=== PATIENT | female | born 1965 | race Caucasian/White ===

== ENCOUNTER 2021-03-29 09:52 | Emergency (ER) | payer OTHER, SELFPAY ==
--- NOTE | ~2021-03-29 | XR_ITS ---
EXAMINATION: XR HUMERUS, LEFT CLINICAL INFORMATION: Trauma, large hematoma. COMPARISON: None TECHNIQUE: 2 views of the left humerus. FINDINGS: There is no visible acute fracture or dislocation. The humeral head and neck and shaft appear intact. There is no destructive process. Bony mineralization is normal. No gas tracking in the soft tissues. There is a 0.7 x 0.5 ossification adjacent to the lateral epicondyle, likely corticated. This may be an old detached spur and with be best correlated with formal radiographs of the elbow. XR/XR humerus LT IMPRESSION: 1. No visible acute fracture or dislocation. No gas tracking in soft tissues. 2. Probable detached corticated spur near lateral epicondyle 0.7 x 0.5 cm. This may be further assessed with formal elbow radiographs.
--- NOTE | ~2021-03-29 | CT_ITS ---
EXAMINATION: CT LEFT HUMERUS WITHOUT CONTRAST CLINICAL INFORMATION: Hematoma. History of trauma. COMPARISON: Previous x-ray of the left humerus from earlier the same day TECHNIQUE: Axial images through the left humerus without contrast. Sagittal and coronal reconstructions on the technologist workstation were performed. FINDINGS: Bone alignment is normal. No fracture or dislocation is seen. The the shoulder and elbow joint spaces are normal. There is a small well-corticated soft tissue ossification adjacent to the lateral humeral epicondyle likely related to old epicondylitis. There is a high attenuation soft tissue mass seen in the subcutaneous fat of the inferior posterior medial upper arm. This measures 2.2 x 2.8 x 4 cm in dimension. There is stranding of the adjacent subcutaneous fat. This likely represents a hematoma. Soft tissues are otherwise unremarkable. No other soft tissue mass is seen. CT/CT humerus LT wo con IMPRESSION: No fracture or dislocation. 2.2 x 2.8 x 4 cm high attenuation subcutaneous soft tissue mass in the posterior medial inferior upper arm and stranding of the subcutaneous fat. This most likely represents a hematoma. 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
[2021-03-29 10:07] VITALS: BP 146/80; PULSE 74; RESP 16; TEMP 36.7; O2SAT 100; BMI 21.9
--- NOTE | 2021-03-29 10:36 | ED.EXTPRO ---
HPI - Extremity Problem General Chief complaint: Extremity Injury, Upper <GOPAL Kuo - Last Filed: 03/29/21 13:49> Stated complaint: Kicked by horse <GOPAL Kuo - Last Filed: 03/29/21 13:49> Time Seen by Provider: 03/29/21 10:25 <GOPAL Kuo - Last Filed: 03/29/21 13:49> Source: patient <GOPAL Kuo - Last Filed: 03/29/21 13:49> Mode of arrival: ambulatory <GOPAL Kuo - Last Filed: 03/29/21 13:49> Limitations: no limitations <GOPAL Kuo - Last Filed: 03/29/21 13:49> History of Present Illness HPI Narrative: 55 y/o female presenting with left upper arm pain, swelling and bruising after she was kicked in the arm by her friend's horse about 1.5 hours ago. She had immediate pain and bruising to the under portion of her upper arm. She has denies numbness or tingling. She has pain with elbow flexion but is able to freely move around her shoulder and arm. She is not on anticoagulation. <GOPAL Kuo - Last Filed: 03/29/21 13:49> MD Complaint: extremity pain and extremity swelling <GOPAL Kuo - Last Filed: 03/29/21 13:49> Onset (ago): hour(s) <GOPAL Kuo - Last Filed: 03/29/21 13:49> Pain Consistency: constant <GOPAL Kuo Last Filed: 03/29/21 13:49> Location: left and upper extremity <GOPAL Kuo Last Filed: 03/29/21 13:49> Severity scale (1-10): 8 <GOPAL Kuo - Last Filed: 03/29/21 13:49> Quality: aching and sharp <GOPAL Kuo - Last Filed: 03/29/21 13:49> Radiation: none <GOPAL Kuo - Last Filed: 03/29/21 13:49> Relieving factors: elevation <GOPAL Kuo Last Filed: 03/29/21 13:49> Exacerbating factors: palpation <GOPAL Kuo Last Filed: 03/29/21 13:49> Associated symptoms: myalgias <GOPAL Kuo Last Filed: 03/29/21 13:49> Related Data Allergies/Adverse reactions: Allergies Allergy/AdvReac Type Severity Reaction Status Date / Time pollen extracts Allergy Itchy Eyes Verified 03/29/21 10:06 <GOPAL Kuo Last Filed: 03/29/21 13:49> Review of Systems Review of Systems: Constitutional: No Fever, No Chills Cardiovascular: No Chest Pain, No SOB Respiratory: No Cough, No Sputum Gastrointestinal: No Nausea, No Vomiting, No Diarrhea, No abdominal Pain Musculoskeletal: No joint pain, + Myalgias Skin: No Skin Lesions, No rash Neuro: No Weakness, No Numbness, No Dizziness, No Headache Psych: No Anxiety/Panic, No Depression Heme/Lymph: + Bruising, No Lymphadenopathy <GOPAL Kuo Last Filed: 03/29/21 13:49> [facility] Past Medical History Attestation statement: The following information was validated with the patient. <GOPAL Kuo Last Filed: 03/29/21 13:49> Surgical History: Surgical History H/O: hysterectomy [place] teeth extracted <GOPAL Kuo Last Filed: 03/29/21 13:49> Physical Exam Vital Signs: Vital Signs: Last Vital Signs Temp 98.0 F 03/29/21 10:07 Pulse 77 03/29/21 13:14 Resp 16 03/29/21 13:14 BP 142/107 H 03/29/21 13:14 Pulse Ox 99 03/29/21 13:14 Body Mass Index 21.9 Appearance: Alert. Oriented X3. No acute distress. HEENT: normal inspection CVS: Normal heart rate and rhythm. Pulses normal. Respiratory: No respiratory distress. Skin: Skin warm and dry. Normal skin color. Normal skin turgor. No rashes. Extremities: left upper arm with large ecchymotic area, tense and taught over tricep area, NV intact distally. lower arm with soft compressible compartments, normal shoulder inspection and ROM. normal elbow inspection, pain with elbow flexion beyond 90 degrees, Neuro: Oriented X 3. No motor deficit. No sensory deficit. <GOPAL Kuo - Last Filed: 03/29/21 13:49> Vital Signs: Last Vital Signs Temp 98.0 F 03/29/21 10:07 Pulse 77 03/29/21 13:14 Resp 16 03/29/21 13:14 BP 142/107 H 03/29/21 13:14 Pulse Ox 99 03/29/21 13:14 Body Mass Index 21.9 <Cody Meeks MD - Last Filed: 04/30/21 16:15> Course Course Course Narrative: 55 y/o female presenting with significant left arm hematoma after she was kicked by a horse. Clinically not consistent with compartment syndrome given it is not circumfrential. Lower arm is benign. Will get XR humerus to assess for fracture as well as blood workup, CPK. <GOPAL Kuo - Last Filed: 03/29/21 13:49> I did assess this patient with large arm, tense hematoma. CT showed the extent of hematoma, Dr. Bhandari consulted. Told the patient that this was likely to cause the skin to become necrotic <Cody Meeks MD - Last Filed: 04/30/21 16:15> Reevaluation(s) Reevaluation #1: Dr. Meeks evaluated the patient and recommending CT arm to assess hematoma extent. <GOPAL Kuo - Last Filed: 03/29/21 13:49> Reevaluation #2: CT scan showing No fracture or dislocation. 2.2 x 2.8 x 4 cm high attenuation subcutaneous soft tissue mass in the posterior medial inferior upper arm and stranding of the subcutaneous fat. This most likely represents a hematoma. 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 Called Dr. Bhandari to evaluate the patient. Concern for evolving necrosis as hematoma organizes in the upcoming days. <GOPAL Kuo - Last Filed: 03/29/21 13:49> Reevaluation #3: Dr. Bhandari evaluated the patient - no surgical intervention required at this time. LAURE wrap applied for compression. She will likely need evacuation of the hematoma if/when necrosis of the area forms. This was relayed to the patient as well as the importance of close follow up. She is going to follow up with her PCP in the [facility] where she lives. Stable for d/c home. <GOPAL Kuo - Last Filed: 03/29/21 13:49> Consultations Consultation #1: Dr. Bhandari. General Surgery - recommending outpatient follow up <GOPAL Kuo - Last Filed: 03/29/21 13:49> MDM - Extremity (Nontraumatic) Lab Data Result diagrams: : 03/29/21 11:01 03/29/21 11:01 <GOPAL Kuo - Last Filed: 03/29/21 13:49> Labs: Lab Results 03/29/21 03/29/21 Range/Units 11:01 11:01 WBC 7.2 (4.8-10.8) X10*3/uL RBC 3.78 L (4.20-5.50) X10*6/uL Hgb 12.2 (12.0-16.0) g/dl Hct 36.0 L (37-47) % MCV 95.2 (80-98) fL MCH 32.3 (27.0-33.0) pg MCHC 33.9 (31.0-35.0) g/dl RDW 12.5 (11.0-16.0) % Plt Count 240 (160-400) X10*3/uL MPV 9.8 (9.4-12.3) fL Immature Gran % (Auto) 0.3 (0.0-0.4) % Neut % (Auto) 75.1 H (45-73) % Lymph % (Auto) 16.4 L (20-40) % [place] % (Auto) 7.5 (2-11) % Eos % (Auto) 0.3 (0-4) % Baso % (Auto) 0.4 (0-2) % Lymph # (Auto) 1.2 (1.2-4.9) X10*3/uL [place] # (Auto) 0.5 (0.1-1.2) X10*3/uL Eos # (Auto) 0.0 (0.0-0.4) X10*3/uL Baso # (Auto) 0.0 (0.0-0.2) X10*3/uL Abs Immat Gran (auto) 0.02 (0.00-0.03) X10*3/uL Absolute Neuts (auto) 5.4 (2.0-8.3) X10*3/uL Absolute Nucleated RBC 0.000 (0.0-0.012) X10*3/uL Nucleated RBC % (auto) 0.0 (0.0-0.2) /100WBC Sodium 138 (135-145) mmol/L Potassium 4.5 (3.3-5.1) mmol/L Chloride 102 (96-108) mmol/L Carbon Dioxide 26 (22-29) mmol/L Anion Gap 15 (12-20) BUN 12 (9-16) mg/dL Creatinine 0.79 (0.5-1.4) mg/dL Estim Creat Clear Calc 59.9 Estimated GFR > 60 Random Glucose 110 (60-115) mg/dL Calcium 9.4 (8.4-10.2) mg/dL Total Creatine Kinase 316 H (26-140) U/L <GOPAL Kuo - Last Filed: 03/29/21 13:49> Lab Results 03/29/21 03/29/21 Range/Units 11:01 11:01 WBC 7.2 (4.8-10.8) X10*3/uL RBC 3.78 L (4.20-5.50) X10*6/uL Hgb 12.2 (12.0-16.0) g/dl Hct 36.0 L (37-47) % MCV 95.2 (80-98) fL MCH 32.3 (27.0-33.0) pg MCHC 33.9 (31.0-35.0) g/dl RDW 12.5 (11.0-16.0) % Plt Count 240 (160-400) X10*3/uL MPV 9.8 (9.4-12.3) fL Immature Gran % (Auto) 0.3 (0.0-0.4) % Neut % (Auto) 75.1 H (45-73) % Lymph % (Auto) 16.4 L (20-40) % [place] % (Auto) 7.5 (2-11) % Eos % (Auto) 0.3 (0-4) % Baso % (Auto) 0.4 (0-2) % Lymph # (Auto) 1.2 (1.2-4.9) X10*3/uL [place] # (Auto) 0.5 (0.1-1.2) X10*3/uL Eos # (Auto) 0.0 (0.0-0.4) X10*3/uL Baso # (Auto) 0.0 (0.0-0.2) X10*3/uL Abs Immat Gran (auto) 0.02 (0.00-0.03) X10*3/uL Absolute Neuts (auto) 5.4 (2.0-8.3) X10*3/uL Absolute Nucleated RBC 0.000 (0.0-0.012) X10*3/uL Nucleated RBC % (auto) 0.0 (0.0-0.2) /100WBC Sodium 138 (135-145) mmol/L Potassium 4.5 (3.3-5.1) mmol/L Chloride 102 (96-108) mmol/L Carbon Dioxide 26 (22-29) mmol/L Anion Gap 15 (12-20) BUN 12 (9-16) mg/dL Creatinine 0.79 (0.5-1.4) mg/dL Estim Creat Clear Calc 59.9 Estimated GFR > 60 Random Glucose 110 (60-115) mg/dL Calcium 9.4 (8.4-10.2) mg/dL Total Creatine Kinase 316 H (26-140) U/L <Cody Meeks MD - Last Filed: 04/30/21 16:15> Discharge Plan Discharge Clinical Impression: Hematoma of arm <GOPAL Kuo - Last Filed: 03/29/21 13:49> Patient Disposition: Home, Self-Care <GOPAL Kuo - Last Filed: 03/29/21 13:49> Instructions: Hematoma (ED) <GOPAL Kuo - Last Filed: 03/29/21 13:49> Additional Instructions: Keep your arm elevated whenever body and compressed with LAURE wrap. Follow up with your doctor tomorrow. Your hematoma will need to be closely monitored and likely evacuated and followed by a Wound [facility]. Take Tylenol 975 mg every 6 hours as needed for pain. If you develop worsening pain, swelling, or develop numbness or tingling in your hand or arm come back to the ER for further evaluation. <GOPAL Kuo - Last Filed: 03/29/21 13:49> Referrals: Nahun Bhandari MD [Physician] - 2 days (hematoma) <GOPAL Kuo - Last Filed: 03/29/21 13:49> Interventions: ED Discharge Assessment Last Done: 03/29/21 13:45 <GOPAL Kuo - Last Filed: 03/29/21 13:49> Discharge Date/Time: 03/29/21 13:46 <GOPAL Kuo - Last Filed: 03/29/21 13:49>
[2021-03-29 11:07] LABS: MANUAL DIFF FLAG NO
[2021-03-29 11:14] LABS: Basophils Percent Auto 0.4 % (0-2); Eosinophils Percent Auto 0.3 % (0-4); Hemoglobin 12.2 g/dl (12.0-16.0); Imm Gran Abs Auto 0.02 X10*3/uL (0.00-0.03); Imm Gran Pct Auto 0.3 % (0.0-0.4); Lymphocytes Absolute Auto 1.2 X10*3/uL (1.2-4.9); Lymphocytes Percent Auto 16.4 % (20-40); Mean Corpuscular HGB Conc 33.9 g/dl (31.0-35.0); Mean Corpuscular Hemoglobin 32.3 pg (27.0-33.0); Mean Corpuscular Volume 95.2 fL (80-98); Mean Platelet Volume 9.8 fL (9.4-12.3); Monocytes Absolute Auto 0.5 X10*3/uL (0.1-1.2); Monocytes Percent Auto 7.5 % (2-11); Neutrophils Absolute Auto 5.4 X10*3/uL (2.0-8.3); Neutrophils Percent Auto 75.1 % (45-73); Platelet Count 240 X10*3/uL (160-400); Red Blood Count 3.78 X10*6/uL (4.20-5.50); Red Cell Distribution Width 12.5 % (11.0-16.0); White Blood Count 7.2 X10*3/uL (4.8-10.8)
[2021-03-29 11:46] LABS: Anion Gap 15 (12-20); Blood Urea Nitrogen 12 mg/dL (9-16); Calcium 9.4 mg/dL (8.4-10.2); Carbon Dioxide 26 mmol/L (22-29); Chloride 102 mmol/L (96-108); Creatinine Clr Calc Pharmacy 59.9; Estimated Glomerular Filt Rate > 60; Glucose Random 110 mg/dL (60-115); Potassium 4.5 mmol/L (3.3-5.1); Sodium 138 mmol/L (135-145)
[2021-03-29 12:51] VITALS: BP 142/102; PULSE 90; RESP 16; O2SAT 100
[2021-03-29 13:14] VITALS: BP 142/107; PULSE 77; RESP 16; O2SAT 99
--- NOTE | 2021-03-29 13:30 | PM.CNGS ---
History of Present Illness Consult details Consult date: 03/29/21 Narrative: 55-year-old female referred to me because of a left upper arm injury. 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 She had immediate swelling on the upper arm so she came to the emergency room. She describes pain on this area. She otherwise does not have any other significant medical problems. She is not on blood thinners. She is just here in town for this for show and says that she is scheduled to go back to her hometown tomorrow. Currently denies any other significant complaints except for pain on the area of injury. Review of Systems Constitutional: Constitutional: Denies chills and Denies fever(s) Cardiovascular: Cardiovascular: Denies chest pain, Denies dyspnea and Denies dyspnea on exertion Respiratory: Respiratory: Denies cough, Denies dyspnea and Denies dyspnea on exertion Gastrointestinal: Gastrointestinal: Denies hematochezia and Denies change in bowel habits Genitourinary: Genitourinary: Denies hematuria Musculoskeletal: Musculoskeletal: Denies back pain and Denies limited range of motion Neurologic: Denies focal weakness and Denies convulsions Psychiatric: Psychiatric: Denies depression and Denies mood swings PMFSH Surgical History Surgical History H/O: hysterectomy [place] teeth extracted Social History Social History Advance Directives: No Advance Directives Information Provided: No Patient : No Meds Allergies Allergy/AdvReac Type Severity Reaction Status Date / Time pollen extracts Allergy Itchy Eyes Verified 03/29/21 10:06 Physical Exam Vital Signs: Vital Signs: Last Vital Signs Temp 98.0 F 03/29/21 10:07 Pulse 77 03/29/21 13:14 Resp 16 03/29/21 13:14 BP 142/107 H 03/29/21 13:14 Pulse Ox 99 03/29/21 13:14 Body Mass Index 21.9 Const: General: comfortable and no acute distress Orientation/consciousness: patient oriented x3 Neck: Neck: Yes no lymphadenopathy Resp: Auscultation: clear to auscultation bilaterally Cardio: Rhythm: regular rhythm GI: Palpation (GI): Soft to palpation, nontender and no guarding Neuro: General: patient oriented x3 Extrem: Other: Left upper arm - large hematoma, about 8 x 5 cm, on the posterior aspect of the left upper arm, good range of motion of the elbow, no erythema, no cellulitis, no evidence of any vascular compromise, no sensory deficits Results Labs Result diagrams: 03/29/21 11:01 03/29/21 11:01 Labs: Abnormal lab results 03/29/21 03/29/21 Range/Units 11:01 11:01 RBC 3.78 L (4.20-5.50) X10*6/uL Hct 36.0 L (37-47) % Neut % (Auto) 75.1 H (45-73) % Lymph % (Auto) 16.4 L (20-40) % Total Creatine Kinase 316 H (26-140) U/L Short CBC 03/29/21 Range/Units 11:01 WBC 7.2 (4.8-10.8) X10*3/uL Hgb 12.2 (12.0-16.0) g/dl Hct 36.0 L (37-47) % Plt Count 240 (160-400) X10*3/uL BMP 03/29/21 11:01 Sodium 138 Potassium 4.5 Chloride 102 Carbon Dioxide 26 BUN 12 Creatinine 0.79 Calcium 9.4 Cardiac Enzymes 03/29/21 Range/Units 11:01 Total Creatine Kinase 316 H (26-140) U/L All other labs normal. Imaging Additional studies: CT scan of the arm reviewed - report and images he Assessment and Plan (1) Hematoma of arm: Qualifiers: Encounter type: initial encounter Laterality: left Qualified Code(s): S40.022A - Contusion of left upper arm, initial encounter Status: Acute She has a large hematoma of the left upper arm from being kicked by a horse this morning. I wrapped the arm in Rolf bandage and I told her to keep this wrapped to prevent hematoma from expanding. There is no evidence of any vascular compromise. The location of the hematoma is posterior which is away from the vital structures of the arm. I told her to apply cold compresses to the area today. I explained to her that this needs to be re-evaluated after 24-48 hours as hematoma may need to be evacuated because of pressure on the skin. She says she promises to have this done by her doctor in her hometown tomorrow which is about 2 hours away. She understands the recommendations. I have discussed the above with the ER staff as well. The patient does not have any coagulopathy. I also advised the patient to not engage any further strenuous activities today including riding her horse as further injury may aggravate this and cause more problems with the hematoma. Procedures Date of Service Date of Service: 03/29/21
== END 2021-03-29 13:46 | disposition home or self-care (01) ==
PROVIDERS: Physician Assistant; Emergency Provider Emergency Medicine
DX: S40.022A Contusion of left upper arm, initial encounter (principal); W55.12XA Struck by horse, initial encounter; Y93.9 Activity, unspecified; Y92.9 Unspecified place or not applicable; Y99.9 Unspecified external cause status
CPT/HCPCS: 36415; 73060; 73200; 80048; 82550; 85025; 99284